=== PATIENT | male | born 1975 | race Caucasian/White ===

== ENCOUNTER 2018-09-29 07:12 | Emergency (ER) | payer OTHER ==
[~2018-09-29] VITALS: Ht 172.7 cm; Wt 74.8 kg
[2018-09-29] MEDS ORDERED: KETOROLAC TROMETH 30 MG/ML 1ML VIAL IV ONE (07:45)
[2018-09-29] MEDS ORDERED: cloNIDine HCL 0.1 MG TAB PO ONE (07:45)
[2018-09-29 07:54] LABS: Basophils # (auto) 0 uL; Basophils % (auto) 0.2 % (0.0-2.0); Eosinophils # (auto) 0 uL; Eosinophils % (auto) 0.2 % (0.0-7.0); Hemoglobin 14.6 g/dL (13.5-17.5); Lymphocytes # (auto) 1.2 uL; Lymphocytes % (auto) 16.2 % (10.0-50.0); Mean Corpuscular Hemoglobin 29.9 pg (28.0-32.0); Mean Corpuscular Hgb Conc. 33.3 g/dL (32.0-36.0); Monocytes # (auto) 0.5 uL; Monocytes % (auto) 6.8 % (0.0-12.0); Neutrophils # (auto) 5.9 uL; Neutrophils % (auto) 76.6 % (37.0-80.0); Platelet Count (auto) 170 10^3/uL (140-450); Red Blood Cells 4.89 10^6/uL (4.5-5.90); Red Cell Distribution Width 14.3 % (11.8-14.3); White Blood Cell 7.7 10^3/uL (4.4-10.8)
[2018-09-29 08:15] LABS: Albumin 3.7 g/dL (3.4-5.0); Anion Gap 5 (5-15); BUN/Creatinine Ratio 19.5; Blood Urea Nitrogen 15 mg/dL (7-18); Calcium 8.7 mg/dL (8.5-10.1); Carbon Dioxide 23 mmol/L (21-32); Chloride 111 mmol/L (98-107); GFR African American 141 mL/min; GFR Non-African American 117 mL/min; Glucose 124 mg/dL (74-106); Magnesium 1.9 mg/dL (1.6-2.6); Potassium 3.7 mmol/L (3.5-5.1); Sodium 139 mmol/L (136-145)
[2018-09-29 08:21] LABS: Alanine Aminotransferase 42 U/L (16-61); Alkaline Phosphatase 74 U/L (45-117); Aspartate Aminotransferase 25 U/L (15-37); Bilirubin, Total 0.4 mg/dL (0.2-1.0); Total Protein 7.2 g/dL (6.4-8.2)
[2018-09-29] MEDS ORDERED: LEVOFLOXACIN 500 MG TAB PO ONE (10:15)
[2018-09-29 10:19] VITALS: BP 142/99
== END 2018-09-29 10:36 | disposition home or self-care (01) ==
LOC: EDBD 07:12 → ER 07:12
DX: S29.011A Strain of muscle and tendon of front wall of thorax, initial encounter (principal); J40 Bronchitis, not specified as acute or chronic; M54.2 Cervicalgia; M25.512 Pain in left shoulder; R51 Headache; I10 Essential (primary) hypertension; V49.49XA Driver injured in collision with other motor vehicles in traffic accident, initial encounter; Y93.I9 Activity, other involving external motion; Y92.488 Other paved roadways as the place of occurrence of the external cause; Y99.8 Other external cause status
CPT/HCPCS: 36415; 70450; 71250; 72125; 80053; 83735; 84484; 85025; 93005; 96374; 99284; J1885

== ENCOUNTER 2021-03-08 20:00 | Emergency (ER) | payer OTHER ==
[~2021-03-08] VITALS: Ht 172.7 cm; Wt 83.9 kg
[2021-03-08 20:12] VITALS: BP 155/107
[2021-03-08] MEDS ORDERED: ACETAMINOPHEN/CODEINE#3 (300/30mg) TAB PO ONE (23:45)
[2021-03-08] MEDS ORDERED: ONDANSETRON ODT 4 MG TAB PO ONE (23:45)
== END 2021-03-09 00:02 | disposition home or self-care (01) ==
LOC: ER 20:06
DX: S63.591A Other specified sprain of right wrist, initial encounter (principal); S62.396D Other fracture of fifth metacarpal bone, right hand, subsequent encounter for fracture with routine healing; I10 Essential (primary) hypertension; Z90.89 Acquired absence of other organs; Z98.890 Other specified postprocedural states; W22.8XXA Striking against or struck by other objects, initial encounter; Y93.89 Activity, other specified; Y92.89 Other specified places as the place of occurrence of the external cause; Y99.8 Other external cause status
CPT/HCPCS: 29125; 73110; 99283; Q0162